=== PATIENT | female | born 1975 | race African-American/Black ===

== ENCOUNTER 2016-07-26 17:36 | Emergency (ER) | payer OTHER ==
[~2016-07-26] VITALS: Ht 167.6 cm; Wt 97.5 kg
--- NOTE | 2016-07-26 18:35 | ED HEADACHE COMPLAINT ---
History of Present Illness General Chief Complaint: Headache Stated Complaint: JAY, HIGH BP PER PT Source: patient Exam Limitations: no limitations Vital Signs & Intake/Output Vital Signs & Intake/Output Vital Signs Date Time Temp Pulse Resp B/P Pulse O2 O2 Flow FiO2 Ox Delivery Rate 07/26 2043 98.7 82 18 120/98 99 Room Air 07/26 1930 178/100 07/26 1855 190/120 07/26 1801 98.3 89 16 180/120 100 Room Air Allergies Coded Allergies: No Known Allergies (07/26/16) Reconcile Medications Calcium Carbonate/Vitamin D3 (Calcium 500 + D Tablet) (Unknown Strength) TABLET (Unknown Dose) PO DAILY SUPPLEMENT (Reported) Cyanocobalamin (Vitamin B-12) (Vitamin B-12) 500 MCG TABLET 1 TAB PO DAILY SUPPLEMENT (Reported) Hydralazine HCl 25 MG TABLET 1 TAB PO TID BP (Reported) Levonorgestrel (Mirena) 20 MCG/24 HOUR (5 YEARS) IUD CONTROL (Reported) Losartan/Hydrochlorothiazide (Losartan-Hctz 100-25 MG Tab) 100 MG-25 MG TABLET 1 TAB PO DAILY BP (Reported) Multivitamin (Multi-Day Vitamins) 1 EACH TABLET 1 TAB PO DAILY SUPPLEMENT ( Reported) Triage Note: PT TO ED FOR HTN AND HEADACHE, REPORTS SHE WOKE UP WITH HEADACHE THIS AM 10/10 PAIN, DENIES CP, PALPITATIONS, KNOWN HTN HX TAKES LOSTARTAN HCTZ AND HYDRALAZINE, TOOK BOTH TODAY - ALSO TOOK TYLENOL FOR HEADACHE. DENIES BLOODY NOSES WELL. Triage Nurses Notes Reviewed? yes : No Patient currently breastfeeds: No HPI: Patient is a 41-year-old female presents complaining of headache and elevated blood pressure. Patient reports she awoke this morning with diffuse throbbing pain. Pain is moderate to severe, no exacerbating or alleviating factors. Patient took Tylenol twice throughout the day with no improvement. Patient takes losartan/hydrochlorothiazide and hydralazine for her blood pressure. Patient reports that she has been compliant with her blood pressure regimen, has not missed any doses. Patient tried to take her blood pressure at home but her blood pressure monitor would not register. Patient denies blurred vision, nausea, vomiting, chest pain, dyspnea. Past History Travel History Traveled to [place] past 21 day No Medical History Any Pertinent Medical History? see below for history Neurological: NONE EENT: NONE Cardiovascular: hypertension Respiratory: NONE Gastrointestinal: NONE Hepatic: NONE Renal: NONE Musculoskeletal: NONE Psychiatric: NONE Endocrine: NONE Blood Disorders: NONE Cancer(s): NONE ABATEMENT WORKER/Reproductive: NONE Surgical History Surgical History: non-contributory Psychosocial History What is your primary language Slovenian Tobacco Use: Never used ETOH Use: denies use Illicit Drug Use: denies illicit drug use Family History Hx Contributory? No Review of Systems Review of Systems Constitutional: Denies: chills, fever. Eyes: Denies: blurred vision, pain. Ears, Nose, Throat, Mouth: Reports: no symptoms. Respiratory: Denies: cough, short of breath. Cardiovascular: Denies: chest pain, peripheral edema, syncope. Gastrointestinal/Abdominal: Denies: abdominal pain, nausea, vomiting. Genitourinary: Reports: no symptoms. Musculoskeletal: Denies: back pain, neck pain. Skin: Reports: no symptoms. Neurological/Psychological: Reports: headache. Denies: numbness, paresthesia. Hematologic/Endocrine: Denies: bruising, bleeding. Endocrine: Reports: no symptoms. Immunologic/Allergic: Reports: no symptoms. Physical Exam Physical Exam General Appearance: well developed/nourished, alert, awake, obese Head: atraumatic, normal appearance Eyes: Bilateral: normal appearance, PERRL, EOMI (grossly normal funduscope exam). Ears, Nose, Throat: normal pharynx, normal ENT inspection, hearing grossly normal Neck: normal inspection, supple, full range of motion Respiratory: normal breath sounds, chest non-tender, no respiratory distress, lungs clear Cardiovascular: regular rate/rhythm Gastrointestinal: normal bowel sounds, soft, non-tender Back: normal inspection, normal range of motion, vertebral tenderness Extremities: normal inspection, normal capillary refill, normal range of motion, no edema Psychiatric: awake, alert, oriented x 3 Cranial Nerves: normal hearing, normal speech, PERRL Coordination/Gait: normal finger to nose, normal gait Motor/Sensory: no motor/sensory deficits Skin: intact, normal color, warm/dry Lymphatic: no anterior cervical funmilayo Core Measures Severe Sepsis Present: No Septic Shock Present: No Progress Differential Diagnosis: carotid dissection, cluster JAY, encephalitis, IC mass/ tumor, intracranial Hem., migraine JAY, subarach. Hem., tension JAY, Hypertensive urgency, hypertensive crisis Plan of Care: Orders Procedure Date/time Status URINE 07/26 1835 Complete URINALYSIS 07/26 1835 Complete TROPONIN LEVEL 07/26 1807 Complete COMPREHENSIVE METABOLIC PANEL 07/26 1807 Complete CBC WITHOUT DIFFERENTIAL 07/26 1807 Complete EKG 07/26 1802 Active Laboratory Tests 07/26/16 1850: Anion Gap 8, Estimated GFR > 60, BUN/Creatinine Ratio 15.0, Glucose 68, Calcium 9.0, Total Bilirubin 0.6, AST 18, ALT 26, Alkaline Phosphatase 50, Troponin I < 0.01, Total Protein 7.5, Albumin 4.3, Globulin 3.2, Albumin/Globulin Ratio 1.3, CBC w Diff NO MAN DIFF REQ, RBC 4.67, MCV 89.7, MCH 29.3, RDW 15.0 H, MPV 9.1, Gran % 50.6, Lymphocytes % 39.2, Monocytes % 6.3, Eosinophils % 3.2, Basophils % 0.7, Absolute Granulocytes 3.6, Absolute Lymphocytes 2.8, Absolute Monocytes 0.4 , Absolute Eosinophils 0.2, Absolute Basophils 0.1, PUBS MCHC 32.6 L, Urine Color YEL, Urine Clarity CLEAR, Urine pH 6.5, Ur Specific [place] 1.020, Urine Protein NEG, Urine Ketones NEG, Urine Nitrite NEG, Urine Bilirubin NEG, Urine Urobilinogen 2.0 H, Ur Leukocyte Esterase NEG, Ur Microscopic EXAM NOT REQUIRED , Urine Hemoglobin NEG, Urine Glucose NEG, Urine Test NEGATIVE 07/26/2016 7:50:33 PM: Patient reports feeling significantly improved. Discussed results of labs and CT scan. Patient resting comfortably, no acute neurologic abnormalities. (SHELBI SERNA,KALINA) Diagnostic Imaging: Viewed by Me: CT Scan. Discussed w/RAD: CT Scan. Radiology Impression: PATIENT: BAILEY HUITRON PRESENT AGE: 41 PATIENT ACCOUNT NO: [id number] : 76 LOCATION: [facility] ORDERING PHYSICIAN: KALINA SERNA SERVICE DATE: 07/26/16 EXAM TYPE: CAT - CT HEAD WO IV CONTRAST EXAMINATION: CT HEAD WITHOUT CONTRAST CLINICAL INFORMATION: Evaluate for stroke. Severe headaches. Hypertension. COMPARISON: None TECHNIQUE: Contiguous axial imaging was performed from the skull base to vertex without intravenous administration of contrast. DLP: 600.71 mGy-cm FINDINGS: There is no evidence of acute intracranial hemorrhage or territorial infarction. No abnormal mass effect or midline shift is seen. Montaño to white matter differentiation is well preserved. No extra-axial fluid collections are identified. The ventricles are normal in size. There is no abnormal attenuation within the brain parenchyma. The osseous structures and soft tissues are normal. The mastoid air cells and visualized portions of the paranasal sinuses are well aerated. IMPRESSION: No acute intracranial pathology. DICTATED BY: FELIPE MARIE MD DATE/TIME DICTATED:07/26/161928 CERTIFIED CODING SPECIALIST:MARIYA DATE/TIME TRANSCRIBED:07/26/161928 CONFIDENTIAL, DO NOT COPY WITHOUT APPROPRIATE AUTHORIZATION. <Electronically signed in Other Vendor System> SIGNED BY: FELIPE MARIE MD 07/26/161934 Initial ED EKG: normal axis, normal intervals, normal p-waves, normal QRS complex, normal sinus rhythm, no ST T wave changes Departure Departure Disposition: HOME OR SELF CARE Condition: Stable Clinical Impression Primary Impression: Hypertensive urgency Secondary Impressions: Headache Referrals: CEDRIC CARCAMO MD (PCP/Family) CHIP THOMPSON M.D. Additional Instructions: Follow up with your primary doctor or with your manager quality compliance this week for recheck of your blood pressure and further evaluation. Return to emergency department if increasing headache, numbness, weakness, change in vision, vomiting, chest pain, difficulty breathing, or worsening of symptoms. Departure Forms: Customer Survey General Discharge Information
[2016-07-26 19:01] LABS: ABSOLUTE BASOPHIL COUNT 0.1 /CUMM (0.0-0.2); ABSOLUTE EOSINOPHIL COUNT 0.2 /CUMM (0.0-0.7); ABSOLUTE GRANULOCYTE CT 3.6 /CUMM (1.4-6.5); ABSOLUTE LYMPH COUNT 2.8 /CUMM (1.2-3.4); ABSOLUTE MONOCYTE COUNT 0.4 /CUMM (0.10-0.60); BASOPHIL % 0.7 % (0.0-2.0); EOSINOPHIL % 3.2 % (0-5); GRANULOCYTE % 50.6 % (42.2-75.2); HEMATOCRIT 41.9 % (37-47); MEAN CORPUSCULAR HGB 29.3 PG (27.0-31.0); MEAN CORPUSCULAR HGB CONC 32.6 G/DL (33.0-37.0); MEAN CORPUSCULAR VOLUME 89.7 FL (81.0-99.0); MEAN PLATELET VOLUME 9.1 FL (7.4-10.4); PLATELET COUNT 193 /CUMM (130-400); RED BLOOD CELL CT 4.67 /CUMM (4.20-5.40); WHITE BLOOD CELL COUNT 7.2 /CUMM (4.8-10.8)
--- NOTE | 2016-07-26 19:35 | CT SCAN REPORT ---
EXAMINATION: CT HEAD WITHOUT CONTRAST CLINICAL INFORMATION: Evaluate for stroke. Severe headaches. Hypertension. COMPARISON: None TECHNIQUE: Contiguous axial imaging was performed from the skull base to vertex without intravenous administration of contrast. DLP: 600.71 mGy-cm FINDINGS: There is no evidence of acute intracranial hemorrhage or territorial infarction. No abnormal mass effect or midline shift is seen. Montaño to white matter differentiation is well preserved. No extra-axial fluid collections are identified. The ventricles are normal in size. There is no abnormal attenuation within the brain parenchyma. The osseous structures and soft tissues are normal. The mastoid air cells and visualized portions of the paranasal sinuses are well aerated. IMPRESSION: No acute intracranial pathology.
[2016-07-26] MEDS ORDERED: HYDRALAZINE HCL25 M1 PO (19:36)
[2016-07-26] MEDS ORDERED: LOSARTAN-HCTZ1 EAC2 PO (19:36)
[2016-07-26] MEDS ORDERED: MULTI-DAY VITA1 EACH PO (19:37)
[2016-07-26] MEDS ORDERED: MIRENA1 EACH (19:37)
[2016-07-26] MEDS ORDERED: VITAMIN B-12500 MC2 PO (19:37)
[2016-07-26] MEDS ORDERED: CALCIUM 500 +1 EAC5 PO (19:38)
[2016-07-26 20:44] VITALS: BP 120/98
== END 2016-07-26 20:52 ==
LOC: ERH 17:36
PROVIDERS: Emergency Medicine
DX: I16.0 Hypertensive urgency (principal); R51 Headache
CPT/HCPCS: 81003; 81025; 93005; 93010; 96374; 96375; J2765

== ENCOUNTER 2017-11-15 19:07 | Emergency (ER) | payer OTHER ==
[~2017-11-15 19:07] MED LIST: CALCIUM 500 +1 EAC5 PO; HYDRALAZINE HCL25 M1 PO; LOSARTAN-HCTZ1 EAC2 PO; MIRENA1 EACH; MULTI-DAY VITA1 EACH PO; VITAMIN B-12500 MC2 PO
--- NOTE | 2017-11-15 19:52 | ED GI/GU/ABDOMINAL COMPLAINT ---
History of Present Illness General Chief Complaint: Low Back Pain/Injury Stated Complaint: LOWER BACK PAIN/SMELLING URINE Source: patient Exam Limitations: no limitations Vital Signs & Intake/Output Vital Signs & Intake/Output Vital Signs Date Time Temp Pulse Resp B/P B/P Pulse O2 O2 Flow FiO2 Mean Ox Delivery Rate 11/151 98.1 97 14 194/108 99 Room Air 11/15 2201 97.6 96 18 190/100 11/15 2200 97.6 96 18 190/100 11/155 97.6 96 18 190/100 98 Room Air Room Air 11/15 1920 98.4 94 17 183/102 97 Room Air ED Intake and Output 11/16 0000 11/15 1200 Intake Total Output Total Balance Patient 230 lb Weight Weight Reported by Patient Measurement Method Allergies Coded Allergies: No Known Allergies (07/26/16) Reconcile Medications Calcium Carbonate/Vitamin D3 (Calcium 500 + D Tablet) (Unknown Strength) TABLET (Unknown Dose) PO DAILY SUPPLEMENT (Reported) Ciprofloxacin HCl (Cipro) 500 MG TABLET 1 TAB PO BID UTI Cyanocobalamin (Vitamin B-12) (Vitamin B-12) 500 MCG TABLET 1 TAB PO DAILY SUPPLEMENT (Reported) Hydralazine HCl 25 MG TABLET 1 TAB PO TID BP (Reported) Levonorgestrel (Mirena) 20 MCG/24 HOUR (5 YEARS) IUD CONTROL (Reported) Losartan/Hydrochlorothiazide (Losartan-Hctz 100-25 MG Tab) 100 MG-25 MG TABLET 1 TAB PO DAILY BP (Reported) Multivitamin (Multi-Day Vitamins) 1 EACH TABLET 1 TAB PO DAILY SUPPLEMENT ( Reported) Triage Note: PT TO ED WITH C/O SEVERAL DAYS OF FOUL SMELLING URINE. NOW REPORTS LEFT FLANK PAIN, WORSE WHEN VOIDING. MILD NAUSEA. BP ELEVATED IN TRIAGE 183/102. REPORTS SHE MISSED HER AM DOSES OF BP MEDS. Triage Nurses Notes Reviewed? yes ? N Is pt currently ? No Onset: Abrupt Duration: day(s): Timing: recent history Radiation: no radiation Activities at Onset: none HPI: 42-year-old female comes into the emergency room for further evaluation of foul- smelling urine, increased urgency, left lower back pain. no vomiting, no fever. denies any abdominal pain but feels queezy. denies any other associated symtpoms. (Luis Daniel Stephens) Past History Travel History Traveled to [place] past 21 day No Medical History Any Pertinent Medical History? see below for history Neurological: NONE EENT: NONE Cardiovascular: hypertension Respiratory: NONE Gastrointestinal: NONE Hepatic: NONE Renal: NONE Musculoskeletal: NONE Psychiatric: NONE Endocrine: NONE Blood Disorders: NONE Cancer(s): NONE INCLUSION TEACHER/Reproductive: NONE Surgical History Surgical History: Gastric sleeve Psychosocial History What is your primary language Montserratian Tobacco Use: Never used Family History Hx Contributory? No (Luis Daniel Stephens) Review of Systems Review of Systems Constitutional: Reports: no symptoms. EENTM: Reports: no symptoms. Respiratory: Reports: no symptoms. Cardiovascular: Reports: no symptoms. GI: Reports: see HPI. Genitourinary: Reports: no symptoms. Musculoskeletal: Reports: see HPI. Skin: Reports: no symptoms. Neurological/Psychological: Reports: no symptoms. Hematologic/Endocrine: Reports: no symptoms. Immunologic/Allergic: Reports: no symptoms. All Other Systems: Reviewed and Negative (Luis Daniel Stephens) Physical Exam Physical Exam General Appearance: well developed/nourished, no apparent distress, alert, awake Head: atraumatic, normal appearance Eyes: Bilateral: normal appearance, EOMI. Ears, Nose, Throat, Mouth: hearing grossly normal, moist mucous membrane Neck: normal inspection Respiratory: normal breath sounds, no respiratory distress Gastrointestinal: normal bowel sounds, soft, non-tender Back: normal inspection, normal range of motion Extremities: normal range of motion Neurologic/Psych: awake, alert, oriented x 3, normal gait, normal mood/affect Skin: intact, normal color Core Measures ACS in differential dx? No Sepsis Present: No Sepsis Focused Exam Completed? No (Luis Daniel Stephens) Progress Differential Diagnosis: diverticulitis, ischemic bowel, kidney stone, PUD/GERD, perforated viscous, SBO, UTI/pyelo Plan of Care: Orders Procedure Date/time Status COMPREHENSIVE METABOLIC PANEL 11/16 2055 Complete CBC WITHOUT DIFFERENTIAL 11/16 2055 Complete Add-on Test (ER Only) 11/15 2020 Active CULTURE,URINE 11/15 1956 Active URINE 11/15 193 Complete URINALYSIS 11/15 1921 Complete Laboratory Tests 11/15/172104: Anion Gap 6, Estimated GFR > 60, BUN/Creatinine Ratio 16.3, Glucose 80, Calcium 8.8, Total Bilirubin 0.4, AST 17, ALT 17, Alkaline Phosphatase 51, Total Protein 6.1 L, Albumin 3.3 L, Globulin 2.8, Albumin/Globulin Ratio 1.2, CBC w Diff NO MAN DIFF REQ, RBC 4.34, MCV 88.8, MCH 29.7, MCHC 33.4, RDW 14.6 H, MPV 8.6, Gran % 56.6, Lymphocytes % 33.8, Monocytes % 5.9, Eosinophils % 3.3, Basophils % 0.4, Absolute Granulocytes 5.1, Absolute Lymphocytes 3.0, Absolute Monocytes 0.5 , Absolute Eosinophils 0.3, Absolute Basophils 0 11/15/171956: Urine Test NEGATIVE 11/15/171956: Methadone Screen Cancelled, Barbiturate Screen Cancelled, Ur Phencyclidine Scrn Cancelled, Amphetamines Screen Cancelled, U Benzodiazepines Scrn Cancelled, Urine Cocaine Screen Cancelled, Urine Cannabis Screen Cancelled, Urine Color YEL , Urine Clarity HAZY H, Urine pH 6.0, Ur Specific [place] 1.025, Urine Protein NEG, Urine Ketones NEG, Urine Nitrite POS H, Urine Bilirubin NEG, Urine Urobilinogen 1.0, Ur Leukocyte Esterase NEG, Ur Microscopic SEDIMENT EXAMINED, Urine RBC FEW H, Urine WBC 5-10 H, Ur Epithelial Cells MOD H, Urine Bacteria MANY H, Urine Hemoglobin NEG, Urine Glucose NEG Microbiology 11/15 1956 URINE ROUT: Urine Culture - RECD CT scan does not show any acute findings. Urinalysis is showing signs of infection. A urine culture was added. Patient will be covered with Cipro. Advised rest and fluids Tylenol or IBUProfen for pain. Follow-up with primary care doctor. Discussed return precautions patient agrees WITH the plan. (Tiago SERNA,Devang) Diagnostic Imaging: Viewed by Me: CT Scan. Discussed w/RAD: CT Scan. Initial ED EKG: none (Flako SERNA,Luis Daniel) Radiology Impression: PATIENT: BAILEY HUITRON PRESENT AGE: 42 PATIENT ACCOUNT NO: [id number] : 77 LOCATION: [facility] ORDERING PHYSICIAN: Luis Daniel SERNA SERVICE DATE: 11/15/17 EXAM TYPE: CAT - CT ABD & PELVIS W ORAL & IV CO EXAMINATION: CT ABDOMEN AND PELVIS WITH CONTRAST CLINICAL INFORMATION: Bariatric protocol. Abdominal pain. Left low back pain. COMPARISON: None TECHNIQUE: Multidetector volumetric imaging was performed of the abdomen and pelvis following IV administration of 100 mL of Optiray 320 intravenous contrast. Sagittal and coronal reformatted images were obtained on the technologist's workstation. DLP: 940 mGy-cm FINDINGS: LUNG BASES: The visualized lung bases are unremarkable. LIVER, GALLBLADDER, AND BILIARY TREE: The liver is normal in size, shape, and attenuation. No focal hepatic lesion or biliary ductal dilatation is present. The gallbladder is unremarkable with no evidence of radiopaque gallstones, gallbladder wall thickening, or obvious pericholecystic inflammatory changes. PANCREAS: Unremarkable. SPLEEN: Unremarkable. ADRENAL GLANDS: Unremarkable. KIDNEYS AND URETERS: The kidneys are normal in size, shape, and attenuation. No hydronephrosis, hydroureter, or calculi seen. No perinephric stranding. BLADDER: Unremarkable. GASTROINTESTINAL TRACT: There are postoperative findings related to gastric sleeve surgery noting decreased caliber of the stomach with staple line noted. Much of the oral contrast remains within the patulous distal esophagus and stomach. The antrum appears thickened. The small bowel is nondistended. The colon appears normal. The appendix is not definitively seen however there is no inflammatory stranding in the right lower quadrant. ABDOMINAL WALL: Small fat-containing abdominal periumbilical hernia. LYMPH NODES: Normal. VASCULAR: Unremarkable. PELVIC VISCERA: The uterus and adnexa appear normal. There is a intrauterine device in place. There is a tampon in place. OSSEOUS STRUCTURES: Spondylotic changes at L4 -L5. No fracture. No destructive osseous lesion. IMPRESSION: - No acute abnormality in the abdomen or pelvis. - Postoperative findings in the stomach are noted. The antrum appears thickened. - No bowel obstruction. - Small fat- containing periumbilical hernia. - Intrauterine device in place. DICTATED BY: Gigi Tapia MD DATE/TIME DICTATED:11/15/172247 FISH PACKER:MARIYA DATE/TIME TRANSCRIBED:11/15/172247 CONFIDENTIAL, DO NOT COPY WITHOUT APPROPRIATE AUTHORIZATION. (Devang Velazquez) Departure Departure Condition: Stable Referrals: Flo Flannery MD (PCP/Family) Departure Forms: Customer Survey General Discharge Information (Luis Daniel Stephens) Departure Disposition: HOME OR SELF CARE Clinical Impression Primary Impression: UTI (urinary tract infection) Qualifiers: Urinary tract infection type: acute cystitis Hematuria presence: without hematuria Qualified Code: N30.00 - Acute cystitis without hematuria Additional Instructions: Take antibiotics as directed for the full course. Tylenol and ibuprofen as needed for pain. Make a follow-up with YOUR primary care doctor to review all results of today's visit. Monitor symptoms return with any concerns. Please go over all results of today's visit with your primary care doctor. Contact your primary care doctor to let them know you were here in the emergency room. There may be nonspecific findings which may not be related to your visit today here in the emergency room but may require further evaluation and chronic monitoring by your primary care doctor. If you had a laceration today the chance of foreign body always remains. You should follow-up with your primary care doctor for recheck in 3-5 days for a wound check. If you had an x-ray done there is a chance that a fracture could have been missed on initial read and you should follow-up with your primary care doctor for repeat x-rays if symptoms persist. If your blood pressure was elevated here in the emergency room please have rechecked by her primary care doctor within the next 48 hours by your primary care doctor. If you were prescribed a narcotic here in the emergency room or any type of controlled substances you're not allowed to drive while taking this medication or operate any type of heavy machinery. Narcotics can make you feel lightheaded dizziness nausea and can cause constipation. You may need to pickle solution maker a stool softener. Thank you for choosing [facility] emergency room. Please return to the emergency room immediately if you have any other concerns worsening of symptoms. Prescriptions: Current Visit Scripts Ciprofloxacin HCl (Cipro) 1 TAB PO BID #14 TAB (Devang Velazquez)
[2017-11-15 21:12] LABS: ABSOLUTE BASOPHIL COUNT 0 /CUMM (0.0-0.2); ABSOLUTE EOSINOPHIL COUNT 0.3 /CUMM (0.0-0.7); ABSOLUTE GRANULOCYTE CT 5.1 /CUMM (1.4-6.5); ABSOLUTE MONOCYTE COUNT 0.5 /CUMM (0.10-0.60); BASOPHIL % 0.4 % (0.0-2.0); EOSINOPHIL % 3.3 % (0-5); GRANULOCYTE % 56.6 % (42.2-75.2); HEMATOCRIT 38.5 % (37-47); MEAN CORPUSCULAR HGB 29.7 PG (27.0-31.0); MEAN CORPUSCULAR HGB CONC 33.4 G/DL (33.0-37.0); MEAN CORPUSCULAR VOLUME 88.8 FL (81.0-99.0); MEAN PLATELET VOLUME 8.6 FL (7.4-10.4); PLATELET COUNT 225 /CUMM (130-400); RBC DISTRIBUTION WIDTH 14.6 % (11.5-14.5); RED BLOOD CELL CT 4.34 /CUMM (4.20-5.40); WHITE BLOOD CELL COUNT 8.9 /CUMM (4.8-10.8)
--- NOTE | 2017-11-15 23:01 | CT SCAN REPORT ---
EXAMINATION: CT ABDOMEN AND PELVIS WITH CONTRAST CLINICAL INFORMATION: Bariatric protocol. Abdominal pain. Left low back pain. COMPARISON: None TECHNIQUE: Multidetector volumetric imaging was performed of the abdomen and pelvis following IV administration of 100 mL of Optiray 320 intravenous contrast. Sagittal and coronal reformatted images were obtained on the technologist's workstation. DLP: 940 mGy-cm FINDINGS: LUNG BASES: The visualized lung bases are unremarkable. LIVER, GALLBLADDER, AND BILIARY TREE: The liver is normal in size, shape, and attenuation. No focal hepatic lesion or biliary ductal dilatation is present. The gallbladder is unremarkable with no evidence of radiopaque gallstones, gallbladder wall thickening, or obvious pericholecystic inflammatory changes. PANCREAS: Unremarkable. SPLEEN: Unremarkable. ADRENAL GLANDS: Unremarkable. KIDNEYS AND URETERS: The kidneys are normal in size, shape, and attenuation. No hydronephrosis, hydroureter, or calculi seen. No perinephric stranding. BLADDER: Unremarkable. GASTROINTESTINAL TRACT: There are postoperative findings related to gastric sleeve surgery noting decreased caliber of the stomach with staple line noted. Much of the oral contrast remains within the patulous distal esophagus and stomach. The antrum appears thickened. The small bowel is nondistended. The colon appears normal. The appendix is not definitively seen however there is no inflammatory stranding in the right lower quadrant. ABDOMINAL WALL: Small fat-containing abdominal periumbilical hernia. LYMPH NODES: Normal. VASCULAR: Unremarkable. PELVIC VISCERA: The uterus and adnexa appear normal. There is a intrauterine device in place. There is a tampon in place. OSSEOUS STRUCTURES: Spondylotic changes at L4-L5. No fracture. No destructive osseous lesion. IMPRESSION: - No acute abnormality in the abdomen or pelvis. - Postoperative findings in the stomach are noted. The antrum appears thickened. - No bowel obstruction. - Small fat-containing periumbilical hernia. - Intrauterine device in place.
[2017-11-15 23:21] VITALS: BP 194/108
[2017-11-15] MEDS ORDERED: CIPRO500 M1 PO (23:29)
== END 2017-11-15 23:50 ==
LOC: ERH 19:07
PROVIDERS: Physician Assistant Medical
DX: N39.0 Urinary tract infection, site not specified (principal)
CPT/HCPCS: 74177; 80307; 81001; 81025; 87086